=== PATIENT | male | born 1960 | race Caucasian/White ===

== ENCOUNTER 2017-05-28 07:43 | Day surgery (SDC) | payer BC ==
[~2017-05-28 07:43] MED LIST: ACETAMINOPHEN 1,000 MG/100 ML BTL IV ONE
[2017-05-28] MEDS ORDERED: BUPIVACAINE 0.25% W/EPI MPF 30ML VIAL IVP ONE (10:57)
[2017-05-28] MEDS ORDERED: MIDAZOLAM HCL 2MG/2ML VIAL IV ONE (12:47)
[2017-05-28] MEDS ORDERED: LIDOCAINE 2% MDV (20MG/ML) 20ML VIAL IV ONE (12:47)
[2017-05-28] MEDS ORDERED: KETOROLAC 30 MG/ML VIAL IVP ONE (12:47)
[2017-05-28] MEDS ORDERED: FENTANYL PF 100MCG/2ML VIAL IV ONE (12:47)
[2017-05-28] MEDS ORDERED: *PACU ONLY* KETAMINE HCL 10 MG/ML (20ML) VIAL IV ONE (12:47)
[2017-05-28] MEDS ORDERED: PROPOFOL 10 MG/ML VIAL IV ONE (12:47)
--- NOTE | 2017-05-31 10:10 | Operative Note ---
DATE OF SURGERY: 05/28/2017 Surgeon: Mateo Rutledge MD PREOPERATIVE DIAGNOSIS: Phimosis. POSTOPERATIVE DIAGNOSIS: Phimosis. OPERATION: Circumcision. Anesthesia: General. Indication: A 56-year-old male who had been experiencing recurrent balanoposthitis due to phimosis. We discussed the circumcision surgery which he requested to have performed in detail, including risks of pain, bleeding, infection, iatrogenic injury, changes in erectile function, and sensation, and he understood all of the above and wished to proceed. PROCEDURE: Preop informed consent was obtained. Antibiotics were given. Sedation was administered. The patient was brought to the operating room, given general anesthetic, placed supine on the table, and the genitalia were carefully prepped and draped sterilely. The foreskin was reduced and any residual smegma on the inside of the prepuce was carefully removed and cleansed. An inner-circumferential incision was made about 7 mm proximal to the coronal sulcus and this was carried down through the layers and then hemostasis was achieved. The foreskin was then reduced and an outer circumferential incision was made following the contour of the glans penis and the dorsal midline aspect of the foreskin was then incised, and then the prepuce was then from the shaft of the penis using careful Bovie electrocautery. Careful hemostasis was then achieved again using pinpoint careful cautery and the skin of the penile shaft was then reapproximated initially with four interrupted 3-0 Chromic mattress sutures, followed by multiple interrupted mattress sutures with 3-0 Chromic in the intervening spaces to achieve excellent tension-free apposition of the skin. 6 mL of 0.25% plain Marcaine were then used to perform a penile block, and Bacitracin and a loosely applied 4 x 4 and Coban gauze dressing was placed over the penis and the procedure was then terminated. Sponge, needle, and instrument counts were correct. Blood loss was minimal. The patient was awake and transferred to recovery in stable condition. PLAN: The patient was given detailed postoperative care instructions and will follow up in [facility] in approximately 3 weeks. CC: EVAN LYNN MD, FACP [facility]
== END 2017-05-28 11:00 | disposition home or self-care (01) ==
LOC: SUR 07:43
PROVIDERS: ATTEND Urology
DX: N48.0 Leukoplakia of penis (principal); N47.1 Phimosis; I10 Essential (primary) hypertension; E11.9 Type 2 diabetes mellitus without complications; Z79.84 Long term (current) use of oral hypoglycemic drugs; E03.9 Hypothyroidism, unspecified; E78.00 Pure hypercholesterolemia, unspecified
CPT/HCPCS: 36416; 82948; 93005; 93010; 54161; 00920; J1885; J3010